=== PATIENT | male | born 1965 | race Caucasian/White ===

== ENCOUNTER 2021-03-24 09:32 | Emergency (ER) | payer SELFPAY ==
[~2021-03-24] VITALS: Ht 175.3 cm; Wt 100.0 kg
[2021-03-24] MEDS ORDERED: ULTRAM50 MG PO (10:25)
[2021-03-24 10:33] VITALS: BP 173/97
== END 2021-03-24 10:36 | disposition home or self-care (01) | DRG 605 ==
LOC: ED 09:32
DX: S40.012A Contusion of left shoulder, initial encounter (principal); W11.XXXA Fall on and from ladder, initial encounter